=== PATIENT | male | born 1975 | race Caucasian/White ===

== ENCOUNTER → 2017-01-06 | Outpatient (CLI) | payer BC ==
[~2017-01-06] MED LIST: NO HOME MEDICATIONS; NORCO 325 MG-51 TAB PO; TOPROL XL100 MG PO
== END ==
LOC: COL.RAD 07:26
DX: K57.30 Diverticulosis of large intestine without perforation or abscess without bleeding (principal); M47.895 Other spondylosis, thoracolumbar region
CPT/HCPCS: Q9967

== ENCOUNTER 2017-08-05 01:47 | Emergency (ER) | payer BC ==
[~2017-08-05] VITALS: Ht 175.3 cm; Wt 113.6 kg
[2017-08-05 01:50] VITALS: TEMP 97.6
[2017-08-05] MEDS ORDERED: VERELAN240 MG PO (01:52)
[2017-08-05] MEDS ORDERED: LIPITOR20 MG PO (01:52)
[2017-08-05] MEDS ORDERED: PRILOSEC 20MG20 MG PO (01:52)
[2017-08-05 02:45] LABS: BASO % 0.5 % (0.0-2.0); EOS # 0.2 (0.0-0.7); EOS % 2.8 % (0-4.0); GRAN % 61.7 % (42.2-75.2); HEMATOCRIT 42.3 % (42.0-52.0); HEMOGLOBIN 14.5 g/dl (13.5-18.0); LYMPH # 1.7 (1.2-3.4); MEAN CELL VOLUME 92 fl (80.0-100.0); MEAN CORPUSCULAR HEMOGLOBIN 32 pg (27.0-31.0); MEAN CORPUSCULAR HGB CONC 34 g/dl (33.0-37.0); MEAN PLATELET VOLUME 10.1 fl (7.4-10.4); MONO # 0.6 (0.1-0.6); MONO % 8.4 % (1.7-9.3); PLATELET COUNT 145 K/mm3 (130-400); WHITE BLOOD COUNT 6.5 K/mm3 (4.8-10.8)
[2017-08-05 02:56] LABS: ADJUSTED CALCIUM 8.2 mg/dL (8.4-10.2); ALANINE AMINOTRANSFERASE 67 U/L (21-72); ALBUMIN 4.5 gm/dL (3.5-5.0); ALKALINE PHOSPHATASE 104 U/L (50-136); ANION GAP 13 mmol/L (7-16); BILIRUBIN,TOTAL 0.5 mg/dL (0.0-1.0); BLOOD UREA NITROGEN 18 mg/dL (9-20); CALCIUM 8.6 mg/dL (8.4-10.2); CARBON DIOXIDE 22 mmol/L (22-30); CHLORIDE 104 mmol/L (98-107); CREATININE, serum 0.79 mg/dL (0.66-1.25); GLUCOSE 127 mg/dL (74-106); LIPASE 169 U/L (23-300); POTASSIUM 3.5 mmol/L (3.4-5.0); SODIUM 139 mmol/L (137-145); TOTAL PROTEIN 7.3 gm/dL (6.4-8.2)
[2017-08-05 03:20] LABS: TROPONIN-I < 0.012 ng/mL (0.000-0.034)
[2017-08-05 03:40] VITALS: BP 131/87; PULSE 90
== END 2017-08-05 03:57 | disposition home or self-care (01) ==
LOC: COL.ER 01:47
PROVIDERS: Emergency Medicine
DX: R00.2 Palpitations (principal); F41.0 Panic disorder [episodic paroxysmal anxiety]; F17.210 Nicotine dependence, cigarettes, uncomplicated

== ENCOUNTER 2018-11-01 22:21 | Emergency (ER) | payer BC, OTHER ==
[~2018-11-01] VITALS: Ht 172.7 cm; Wt 118.2 kg
[~2018-11-01 22:21] MED LIST changes: +LIPITOR20 MG PO; +PRILOSEC 20MG20 MG PO; +VERELAN240 MG PO
[2018-11-01 22:26] VITALS: TEMP 98.6
[2018-11-01] MEDS ORDERED: ASPIRIN 81M81 MG/TA2 PO (22:38)
[2018-11-01 23:25] LABS: BASO % 0.3 % (0.0-2.0); EOS # 0.2 (0.0-0.7); EOS % 2.2 % (0-4.0); GRAN # 6.2 (1.4-6.5); GRAN % 67.7 % (42.2-75.2); HEMATOCRIT 44.1 % (42.0-52.0); HEMOGLOBIN 15.2 g/dl (13.5-18.0); LYMPH % 21.2 % (20.0-51.0); MEAN CELL VOLUME 90 fl (80.0-100.0); MEAN CORPUSCULAR HEMOGLOBIN 31 pg (27.0-31.0); MEAN CORPUSCULAR HGB CONC 35 g/dl (33.0-37.0); MEAN PLATELET VOLUME 10.3 fl (7.4-10.4); MONO # 0.8 (0.1-0.6); MONO % 8.4 % (1.7-9.3); PLATELET COUNT 185 K/mm3 (130-400); RED BLOOD COUNT 4.91 M/mm3 (4.20-5.60); REDCELL DISTRIBUTION WIDTH-CV 11.9 % (11.5-14.5)
[2018-11-01 23:35] LABS: ALANINE AMINOTRANSFERASE 82 U/L (21-72); ALBUMIN 4.1 gm/dL (3.5-5.0); ALKALINE PHOSPHATASE 120 U/L (50-136); ANION GAP 9 mmol/L (7-16); AST,SGOT 40 U/L (15-37); BILIRUBIN,TOTAL 0.4 mg/dL (0.0-1.0); BLOOD UREA NITROGEN 18 mg/dL (9-20); CALCIUM 8.9 mg/dL (8.4-10.2); CARBON DIOXIDE 26 mmol/L (22-30); CHLORIDE 106 mmol/L (98-107); CREATININE, serum 0.71 mg/dL (0.66-1.25); GLUCOSE 107 mg/dL (74-106); POTASSIUM 3.7 mmol/L (3.4-5.0); SODIUM 140 mmol/L (137-145); TOTAL PROTEIN 7.4 gm/dL (6.4-8.2)
[2018-11-02] LABS: TROPONIN-I < 0.012 ng/mL (0.000-0.035)
[2018-11-02 03:16] VITALS: BP 122/85; PULSE 63
== END 2018-11-02 03:16 | disposition home or self-care (01) ==
LOC: COL.ER 22:21
PROVIDERS: Emergency Medicine
DX: I10 Essential (primary) hypertension (principal); F17.210 Nicotine dependence, cigarettes, uncomplicated; Z79.82 Long term (current) use of aspirin
CPT/HCPCS: J7030

== ENCOUNTER 2020-02-16 19:29 | Emergency (ER) | payer BC ==
[~2020-02-16] VITALS: Ht 170.2 cm; Wt 122.7 kg
[~2020-02-16 19:29] MED LIST changes: +ASPIRIN 81M81 MG/TA2 PO
[2020-02-16 19:45] VITALS: TEMP 99.1
[2020-02-16] MEDS ORDERED: HCTZ 25MG TAB25 MG PO (20:40)
[2020-02-16 20:41] LABS: BASO % 0.3 % (0.0-2.0); EOS # 0.1 (0.0-0.7); EOS % 1.2 % (0-4.0); GRAN # 5.6 (1.4-6.5); GRAN % 72.3 % (42.2-75.2); HEMATOCRIT 44.6 % (42.0-52.0); HEMOGLOBIN 15.2 g/dl (13.5-18.0); LYMPH # 1.4 (1.2-3.4); MEAN CELL VOLUME 90 fl (80.0-100.0); MEAN CORPUSCULAR HEMOGLOBIN 31 pg (27.0-31.0); MEAN CORPUSCULAR HGB CONC 34 g/dl (33.0-37.0); MEAN PLATELET VOLUME 10.4 fl (7.4-10.4); MONO # 0.6 (0.1-0.6); MONO % 7.9 % (1.7-9.3); PLATELET COUNT 167 K/mm3 (130-400); RED BLOOD COUNT 4.94 M/mm3 (4.20-5.60); REDCELL DISTRIBUTION WIDTH-CV 11.9 % (11.5-14.5)
[2020-02-16 20:46] LABS: ALANINE AMINOTRANSFERASE 74 U/L (4-49); ALBUMIN 4.4 gm/dL (3.5-5.0); ALKALINE PHOSPHATASE 93 U/L (50-136); ANION GAP 9 mmol/L (7-16); AST,SGOT 38 U/L (15-37); BILIRUBIN,TOTAL 0.6 mg/dL (0.0-1.0); BLOOD UREA NITROGEN 13 mg/dL (9-20); CALCIUM 9.2 mg/dL (8.4-10.2); CARBON DIOXIDE 26 mmol/L (22-30); CHLORIDE 100 mmol/L (98-107); GLUCOSE 102 mg/dL (74-106); POTASSIUM 3.7 mmol/L (3.4-5.0); SODIUM 136 mmol/L (137-145)
[2020-02-16 20:51] LABS: C-REACTIVE PROTEIN < 0.5 mg/dL (0.0-0.9)
[2020-02-16 21:04] LABS: TROPONIN-I < 0.012 ng/mL (0.000-0.035)
[2020-02-16] MEDS ORDERED: NORVASC 10MG10 MG PO (21:31)
[2020-02-16 21:46] VITALS: BP 146/84; PULSE 70
== END 2020-02-16 21:54 | disposition home or self-care (01) ==
LOC: COL.ER 19:29
PROVIDERS: Emergency Medicine
DX: I10 Essential (primary) hypertension (principal); F17.210 Nicotine dependence, cigarettes, uncomplicated
CPT/HCPCS: J7030

== ENCOUNTER 2022-05-15 09:14 | Emergency (ER) | payer BC ==
[~2022-05-15] VITALS: Ht 170.2 cm; Wt 127.3 kg
[~2022-05-15 09:14] MED LIST changes: +HCTZ 25MG TAB25 MG PO; +NORVASC 10MG10 MG PO
[2022-05-15 09:28] VITALS: BP 131/82; PULSE 84; TEMP 98.3
== END 2022-05-15 10:39 | disposition left against medical advice (07) ==
LOC: COL.ER 09:14
DX: R53.83 Other fatigue (principal)

== ENCOUNTER 2022-10-19 16:23 | Emergency (ER) | payer BC ==
[~2022-10-19] VITALS: Ht 172.7 cm; Wt 122.7 kg
[2022-10-19 16:27] VITALS: TEMP 98
[2022-10-19 17:16] LABS: BASO % 0.6 % (0.0-2.0); EOS # 0.1 K/mm3 (0.0-0.7); GRAN # 4.6 K/mm3 (1.4-6.5); GRAN % 63.6 % (42.2-75.2); HEMATOCRIT 42.1 % (42.0-52.0); HEMOGLOBIN 14.2 g/dl (13.5-18.0); LYMPH # 1.9 K/mm3 (1.2-3.4); LYMPH % 25.9 % (20.0-51.0); MEAN CELL VOLUME 84 fl (80.0-100.0); MEAN CORPUSCULAR HEMOGLOBIN 28 pg (27-31); MEAN CORPUSCULAR HGB CONC 34 g/dl (33.0-37.0); MEAN PLATELET VOLUME 10.3 fl (7.4-10.4); MONO # 0.6 K/mm3 (0.1-0.6); MONO % 7.8 % (1.7-9.3); PLATELET COUNT 215 K/mm3 (130-400); RED BLOOD COUNT 5.04 M/mm3 (4.20-5.60); REDCELL DISTRIBUTION WIDTH-CV 13.1 % (11.5-14.5)
[2022-10-19 17:39] LABS: ALBUMIN 3.6 gm/dL (3.5-5.0); BILIRUBIN,TOTAL 0.4 mg/dL (0.2-1.2); CREATININE, serum 0.83 mg/dL (0.72-1.25); POTASSIUM 3.5 mmol/L (3.5-4.5); TOTAL PROTEIN 7.7 gm/dL (6.2-8.1)
[2022-10-19 17:44] LABS: TROPONIN-I 0.012 ng/mL (0.00-0.033)
[2022-10-19 18:08] VITALS: BP 101/84; PULSE 72
== END 2022-10-19 18:08 | disposition home or self-care (01) ==
LOC: COL.ER 16:23
PROVIDERS: Personal Emergency Response Attendant
DX: R00.2 Palpitations (principal); Z87.891 Personal history of nicotine dependence